=== PATIENT | female | born 1950 | race Two or more races ===

== ENCOUNTER 2016-11-18 23:01 | Inpatient (IN) | payer OTHER, MEDICAID ==
[~2016-11-18] VITALS: Ht 157.5 cm; Wt 75.8 kg
[~2016-11-18 23:01] MED LIST: ALBU18 IN; BUDE80AE3 INH; DEXTLIQ70 PO; GABA300C8 PO; GLIM1TAB2 PO; LEV500T PO; LOSA100T26 PO; MULTTAB OR
[2016-11-18 23:30] LABS: DEFINITIVE VIEW TRANSMISSION; Hematocrit 41.6 % (36.0-46.0); Hemoglobin 13.2 g/dL (12.2-16.2); Mean Corpuscular Hemoglobin 25.4 pg (28.0-32.0); Mean Corpuscular Hgb Conc. 31.8 g/dL (32.0-36.0); Mean Corpuscular Volume 79.8 fL (80.0-100.0); Platelet Count (auto) 335 10^3/uL (140-450); Red Cell Distribution Width 13.5 % (11.6-16.0); SUSPECT VIEW TRANSMISSION; White Blood Cell 20.5 10^3/uL (4.4-10.8)
[2016-11-18 23:37] LABS: Metamyelocytes % 0; Myelocytes % 0; Promyelocytes % 0; Reactive Lymphocytes 0
[2016-11-18 23:42] LABS: INR 0.99 (0.9-1.15); Partial Thromboplastin Time 28.3 sec (22.64-33.71); Prothrombin Time 10.7 sec (9.37-12.3)
[2016-11-18] MEDS ORDERED: ALBUTEROL SULF 2.5 MG/0.5ML(0.5%) NEB SOLN HHN STA (23:49)
[2016-11-18 23:56] LABS: Platelet Estimate Adequate; RBC Morphology Normal
[2016-11-18 23:58] LABS: Albumin 3.3 g/dL (3.4-5.0); Anion Gap 11 (5-15); Aspartate Aminotransferase 23 U/L (15-37); BUN/Creatinine Ratio 20.7; Blood Urea Nitrogen 24 mg/dL (7-18); Calcium 8.6 mg/dL (8.5-10.1); Carbon Dioxide 25 mmol/L (21-32); Chloride 102 mmol/L (98-107); GFR African American 60 mL/min; GFR Non-African American 49 mL/min; Glucose 113 mg/dL (74-106); Magnesium 1.6 mg/dL (1.6-2.6); Potassium 3.5 mmol/L (3.5-5.1); Sodium 138 mmol/L (136-145)
[2016-11-19] VITALS (7 sets, daily range): BP systolic 97–138; BP diastolic 46–64
[2016-11-19] MEDS ORDERED: SODIUM CHLORIDE 0.9% 500 ML IV ONE
[2016-11-19] MEDS ORDERED: IPRATROPIUM BROM 0.5 MG/2.5ML INH SOL NEB ONE
[2016-11-19] MEDS ORDERED: LEVOFLOXACIN 500MG 100 ML IV ONE
[2016-11-19] MEDS ORDERED: methylPREDNISolone SOD SUCC 125 MG/2 ML VL IV ONE
[2016-11-19 00:03] LABS: Alkaline Phosphatase 107 U/L (45-117); Bilirubin, Total 0.7 mg/dL (0.2-1.0); Total Protein 7.8 g/dL (6.4-8.2)
[2016-11-19 01:15] LABS: B-Type Natriuretic Peptide 25.7 pg/mL (0-100); Temperature: 23.5 C (20.0-25.0)
[2016-11-19] MEDS ORDERED: DEXTROSE (50%) 50ML SYRG IV PRN (02:00)
[2016-11-19] MEDS ORDERED: ONDANSETRON HCL 4 MG/2 ML VIAL IV PRN (02:00)
[2016-11-19] MEDS ORDERED: ACETAMINOPHEN 325 MG TAB PO PRN (02:00)
[2016-11-19] MEDS: ALBUTEROL SULF 2.5 MG/0.5ML(0.5%) NEB SOLN NEB PRN ×3 (05:55→18:58)
[2016-11-19] MEDS: IPRATROPIUM BROM 0.5 MG/2.5ML INH SOL NEB PRN ×3 (05:56→18:58)
[2016-11-19] MEDS: ACCU-CHEK COMFORT CURVE STRIP VI SCH ×3 (06:07→17:42)
[2016-11-19] MEDS: GABAPENTIN 300 MG CAP PO SCH ×3 (06:07→22:43)
[2016-11-19] MEDS: InsuLIN REG 1unit/0.01ml Soln (100units/ml) SC SCH ×3 (06:28→17:48)
[2016-11-19] MEDS ORDERED: BUDESONIDE (INHALATION) 0.5 MG/2 ML NEB NEB SCH (10:00)
[2016-11-19] MEDS ORDERED: methylPREDNISolone SOD SUCC 125 MG/2 ML VL IV SCH (10:00)
[2016-11-19] MEDS: LOSARTAN POTASSIUM 25 MG TAB PO SCH (10:29)
[2016-11-19] MEDS: HCTZ 25 MG TAB PO SCH (10:30)
[2016-11-19] MEDS: FAMOTIDINE 20 MG TAB PO SCH ×2 (10:30→22:43)
[2016-11-19] MEDS: ENOXAPARIN SOD 40 MG/0.4 ML SYRINGE SC SCH (10:30)
[2016-11-19] MEDS: BUDESONIDE (INHALATION) 0.5 MG/2 ML NEB NEB SCH (18:58)
[2016-11-19] MEDS: methylPREDNISolone SOD SUCC 125 MG/2 ML VL IV SCH (22:43)
[2016-11-20] MEDS ORDERED: LEVOFLOXACIN 500MG 100 ML IV SCH
[2016-11-20] MEDS: LEVOFLOXACIN 250MG 50 ML IV SCH ×2 (00:21→23:56)
[2016-11-20] MEDS: IPRATROPIUM BROM 0.5 MG/2.5ML INH SOL NEB PRN ×3 (00:26→12:06)
[2016-11-20] MEDS: ALBUTEROL SULF 2.5 MG/0.5ML(0.5%) NEB SOLN NEB PRN ×3 (00:26→12:06)
[2016-11-20] MEDS: InsuLIN REG 1unit/0.01ml Soln (100units/ml) SC SCH ×4 (01:04→18:00)
[2016-11-20 05:20] VITALS: BP 133/74
[2016-11-20] MEDS: ACCU-CHEK COMFORT CURVE STRIP VI SCH ×5 (06:00→23:55)
[2016-11-20 06:27] LABS: Basophils # (auto) 0 uL; DEFINITIVE VIEW TRANSMISSION; Eosinophils # (auto) 0 uL; Hematocrit 37.6 % (36.0-46.0); Hemoglobin 12.1 g/dL (12.2-16.2); Lymphocytes # (auto) 1.3 uL; Lymphocytes % (auto) 7.2 % (10.0-50.0); Mean Corpuscular Hemoglobin 26.3 pg (28.0-32.0); Mean Corpuscular Hgb Conc. 32.2 g/dL (32.0-36.0); Mean Corpuscular Volume 81.5 fL (80.0-100.0); Mean Platelet Volume 7.6 fL (7.4-10.4); Monocytes # (auto) 0.4 uL; Monocytes % (auto) 2.1 % (0.0-12.0); Neutrophils # (auto) 16.5 uL; Neutrophils % (auto) 90.7 % (37.0-80.0); Platelet Count (auto) 358 10^3/uL (140-450); Red Cell Distribution Width 14.8 % (11.6-16.0); White Blood Cell 18.2 10^3/uL (4.4-10.8)
[2016-11-20] MEDS: GABAPENTIN 300 MG CAP PO SCH ×3 (06:31→21:20)
[2016-11-20 06:37] LABS: Calcium 8.8 mg/dL (8.5-10.1); Potassium 4.3 mmol/L (3.5-5.1)
[2016-11-20 06:40] LABS: Albumin 2.8 g/dL (3.4-5.0); BUN/Creatinine Ratio 25.6
[2016-11-20 06:43] LABS: Bilirubin, Total 0.3 mg/dL (0.2-1.0); Total Protein 7.2 g/dL (6.4-8.2)
[2016-11-20] MEDS: BUDESONIDE (INHALATION) 0.5 MG/2 ML NEB NEB SCH ×2 (07:23→20:33)
[2016-11-20 09:00] VITALS: BP 130/59
[2016-11-20] MEDS: LOSARTAN POTASSIUM 25 MG TAB PO SCH (10:09)
[2016-11-20] MEDS: ENOXAPARIN SOD 40 MG/0.4 ML SYRINGE SC SCH (10:09)
[2016-11-20] MEDS: methylPREDNISolone SOD SUCC 125 MG/2 ML VL IV SCH (10:09)
[2016-11-20] MEDS: FAMOTIDINE 20 MG TAB PO SCH ×2 (10:09→21:20)
[2016-11-20] MEDS: HCTZ 25 MG TAB PO SCH (10:10)
[2016-11-20 13:00] VITALS: BP 152/82
[2016-11-20] MEDS ORDERED: GLIMEPIRIDE 2 MG TAB PO ONE (13:00)
[2016-11-20 17:17] VITALS: BP 141/78
[2016-11-20] MEDS: ALBUTEROL SULF 2.5 MG/0.5ML(0.5%) NEB SOLN NEB SCH (20:32)
[2016-11-20] MEDS: IPRATROPIUM BROM 0.5 MG/2.5ML INH SOL NEB SCH (20:32)
[2016-11-20 22:00] VITALS: BP 123/63
[2016-11-21] VITALS (7 sets, daily range): BP systolic 117–128; BP diastolic 58–74
[2016-11-21] MEDS: InsuLIN REG 1unit/0.01ml Soln (100units/ml) SC SCH ×5 (00:17→23:35)
[2016-11-21] MEDS: ALBUTEROL SULF 2.5 MG/0.5ML(0.5%) NEB SOLN NEB PRN (03:57)
[2016-11-21] MEDS: IPRATROPIUM BROM 0.5 MG/2.5ML INH SOL NEB PRN (03:58)
[2016-11-21] MEDS: GABAPENTIN 300 MG CAP PO SCH ×3 (06:05→21:31)
[2016-11-21] MEDS: GLIMEPIRIDE 2 MG TAB PO SCH (06:08)
[2016-11-21] MEDS: ACCU-CHEK COMFORT CURVE STRIP VI SCH ×4 (06:09→23:35)
[2016-11-21 06:14] LABS: Basophils # (auto) 0 uL; Basophils % (auto) 0.2 % (0.0-2.0); DEFINITIVE VIEW TRANSMISSION; Eosinophils # (auto) 0 uL; Hematocrit 36.2 % (36.0-46.0); Hemoglobin 11.8 g/dL (12.2-16.2); Lymphocytes # (auto) 2.2 uL; Lymphocytes % (auto) 11.5 % (10.0-50.0); Mean Corpuscular Hemoglobin 26.2 pg (28.0-32.0); Mean Corpuscular Hgb Conc. 32.6 g/dL (32.0-36.0); Mean Corpuscular Volume 80.4 fL (80.0-100.0); Mean Platelet Volume 7.3 fL (7.4-10.4); Monocytes # (auto) 1.7 uL; Monocytes % (auto) 8.5 % (0.0-12.0); Neutrophils # (auto) 15.5 uL; Neutrophils % (auto) 79.8 % (37.0-80.0); Platelet Count (auto) 390 10^3/uL (140-450); Red Cell Distribution Width 14.4 % (11.6-16.0); White Blood Cell 19.4 10^3/uL (4.4-10.8)
[2016-11-21 06:46] LABS: Calcium 8.8 mg/dL (8.5-10.1); Potassium 3.6 mmol/L (3.5-5.1)
[2016-11-21 06:49] LABS: BUN/Creatinine Ratio 30.8
[2016-11-21] MEDS: IPRATROPIUM BROM 0.5 MG/2.5ML INH SOL NEB SCH ×4 (07:11→19:52)
[2016-11-21] MEDS: ALBUTEROL SULF 2.5 MG/0.5ML(0.5%) NEB SOLN NEB SCH ×4 (07:12→19:53)
[2016-11-21] MEDS: FAMOTIDINE 20 MG TAB PO SCH ×2 (10:29→21:32)
[2016-11-21] MEDS: ENOXAPARIN SOD 40 MG/0.4 ML SYRINGE SC SCH (10:29)
[2016-11-21] MEDS: predniSONE 20 MG TAB PO SCH (10:30)
[2016-11-21] MEDS: LOSARTAN POTASSIUM 25 MG TAB PO SCH (10:31)
[2016-11-21] MEDS: BUDESONIDE (INHALATION) 0.5 MG/2 ML NEB NEB SCH ×2 (10:49→22:00)
[2016-11-21] MEDS ORDERED: PIPERACILLIN-TAZOB 3.375GM 0 ML IV ONE (20:19)
[2016-11-21] MEDS: LEVOFLOXACIN 250MG 50 ML IV SCH (23:34)
[2016-11-22] VITALS (7 sets, daily range): BP systolic 116–152; BP diastolic 65–71
[2016-11-22] MEDS: InsuLIN REG 1unit/0.01ml Soln (100units/ml) SC SCH ×4 (05:41→23:43)
[2016-11-22] MEDS: ACCU-CHEK COMFORT CURVE STRIP VI SCH ×4 (05:41→23:43)
[2016-11-22] MEDS: GABAPENTIN 300 MG CAP PO SCH ×3 (06:17→21:37)
[2016-11-22] MEDS: GLIMEPIRIDE 2 MG TAB PO SCH (06:17)
[2016-11-22 06:32] LABS: Basophils # (auto) 0 uL; Basophils % (auto) 0.2 % (0.0-2.0); DEFINITIVE VIEW TRANSMISSION; Eosinophils # (auto) 0 uL; Eosinophils % (auto) 0.2 % (0.0-7.0); Hematocrit 37.8 % (36.0-46.0); Hemoglobin 12.3 g/dL (12.2-16.2); Lymphocytes # (auto) 2.8 uL; Mean Corpuscular Hemoglobin 25.9 pg (28.0-32.0); Mean Corpuscular Hgb Conc. 32.5 g/dL (32.0-36.0); Mean Corpuscular Volume 79.8 fL (80.0-100.0); Mean Platelet Volume 6.7 fL (7.4-10.4); Monocytes # (auto) 1.6 uL; Monocytes % (auto) 10.4 % (0.0-12.0); Neutrophils # (auto) 11.2 uL; Neutrophils % (auto) 71.2 % (37.0-80.0); Platelet Count (auto) 445 10^3/uL (140-450); Red Cell Distribution Width 14.6 % (11.6-16.0); White Blood Cell 15.8 10^3/uL (4.4-10.8)
[2016-11-22 06:46] LABS: BUN/Creatinine Ratio 26.2; Calcium 8.8 mg/dL (8.5-10.1); Magnesium 1.8 mg/dL (1.6-2.6); Potassium 3.8 mmol/L (3.5-5.1)
[2016-11-22] MEDS: ALBUTEROL SULF 2.5 MG/0.5ML(0.5%) NEB SOLN NEB SCH ×4 (07:20→19:39)
[2016-11-22] MEDS: IPRATROPIUM BROM 0.5 MG/2.5ML INH SOL NEB SCH ×4 (07:21→19:39)
[2016-11-22] MEDS: BUDESONIDE (INHALATION) 0.5 MG/2 ML NEB NEB SCH ×2 (07:23→19:39)
[2016-11-22] MEDS: ENOXAPARIN SOD 40 MG/0.4 ML SYRINGE SC SCH (11:25)
[2016-11-22] MEDS: LOSARTAN POTASSIUM 25 MG TAB PO SCH (11:25)
[2016-11-22] MEDS: FAMOTIDINE 20 MG TAB PO SCH ×2 (11:26→21:38)
[2016-11-22] MEDS: predniSONE 20 MG TAB PO SCH (11:26)
[2016-11-23 04:44] VITALS: BP 136/77
[2016-11-23] MEDS: GABAPENTIN 300 MG CAP PO SCH (05:24)
[2016-11-23] MEDS: InsuLIN REG 1unit/0.01ml Soln (100units/ml) SC SCH (05:27)
[2016-11-23] MEDS: ACCU-CHEK COMFORT CURVE STRIP VI SCH (05:28)
[2016-11-23] MEDS: GLIMEPIRIDE 2 MG TAB PO SCH (05:59)
[2016-11-23] MEDS: IPRATROPIUM BROM 0.5 MG/2.5ML INH SOL NEB SCH ×3 (06:14→14:19)
[2016-11-23] MEDS: ALBUTEROL SULF 2.5 MG/0.5ML(0.5%) NEB SOLN NEB SCH ×3 (06:14→14:19)
[2016-11-23 08:00] VITALS: BP 123/70
[2016-11-23 08:48] VITALS: BP 123/70
[2016-11-23] MEDS: LOSARTAN POTASSIUM 25 MG TAB PO SCH (10:00)
[2016-11-23] MEDS: predniSONE 20 MG TAB PO SCH (10:00)
[2016-11-23] MEDS: ENOXAPARIN SOD 40 MG/0.4 ML SYRINGE SC SCH (10:00)
[2016-11-23] MEDS ORDERED: LEVOFLOXACIN 500 MG TAB PO SCH (10:00)
[2016-11-23] MEDS: FAMOTIDINE 20 MG TAB PO SCH (10:00)
[2016-11-23] MEDS: BUDESONIDE (INHALATION) 0.5 MG/2 ML NEB NEB SCH (10:35)
[2016-11-23 11:07] VITALS: BP 123/70
[2016-11-23 11:45] VITALS: BP 123/70
[2016-11-23 12:47] VITALS: BP 118/79
== END 2016-11-23 15:20 | disposition home or self-care (01) | DRG 189 ==
LOC: ER 23:04 → OVERFLOW 23:05 → WEST WING 11-19 02:27
PROVIDERS: ADMIT Nurse Practitioner; ATTEND Internal Medicine
DX: J96.21 Acute and chronic respiratory failure with hypoxia (principal); J44.1 Chronic obstructive pulmonary disease with (acute) exacerbation; N17.9 Acute kidney failure, unspecified; R65.10 Systemic inflammatory response syndrome (SIRS) of non-infectious origin without acute organ dysfunction; D72.829 Elevated white blood cell count, unspecified; E11.22 Type 2 diabetes mellitus with diabetic chronic kidney disease; I12.9 Hypertensive chronic kidney disease with stage 1 through stage 4 chronic kidney disease, or unspecified chronic kidney disease; M10.9 Gout, unspecified; N18.3 Chronic kidney disease, stage 3 (moderate); E66.01 Morbid (severe) obesity due to excess calories; T38.0X5A Adverse effect of glucocorticoids and synthetic analogues, initial encounter; F41.9 Anxiety disorder, unspecified; Z87.442 Personal history of urinary calculi; Z87.891 Personal history of nicotine dependence; Z68.26 Body mass index [BMI] 26.0-26.9, adult; Z90.49 Acquired absence of other specified parts of digestive tract; Z90.710 Acquired absence of both cervix and uterus; Z88.6 Allergy status to analgesic agent; Z88.1 Allergy status to other antibiotic agents; Z88.0 Allergy status to penicillin; Z88.8 Allergy status to other drugs, medicaments and biological substances; Z79.899 Other long term (current) drug therapy; Z99.81 Dependence on supplemental oxygen
CPT/HCPCS: 36415; 71020; 80048; 80053; 82962; 83605; 83735; 83880; 84484; 85007; 85025; 85027; 85610; 85730; 87040; 93005; 94640; 94644; 94761; 96365; 96375; J1815; J1956; J2405; J2543

== ENCOUNTER → 2016-12-31 | Outpatient (CLI) | payer OTHER, MEDICAID ==
[~2016-12-31] MED LIST changes: +ALBUTEROL SULF 2.5 MG/0.5ML(0.5%) NEB SOLN ONE; +GABA-497 PO; -GABA300C8 PO; -LEV500T PO; +SODIUM CHLORIDE 0.9 % NEB SOLN 3ML NEB ONE
[2016-12-31 09:46] LABS: Albumin 3.8 g/dL (3.4-5.0); BUN/Creatinine Ratio 27.1; Bilirubin, Total 0.6 mg/dL (0.2-1.0); Calcium 8.8 mg/dL (8.5-10.1); Potassium 3.9 mmol/L (3.5-5.1); Total Protein 7.5 g/dL (6.4-8.2)
[2016-12-31 09:54] LABS: Urine Bilirubin Negative (Negative); Urine Blood Negative /uL (Negative); Urine Color Yellow (Yellow); Urine Glucose Normal (Normal); Urine Ketone Negative (Negative); Urine Mucus FEW (None Seen); Urine Nitrite Negative (Negative); Urine RBC 1 /hpf (0 - 4); Urine Squamous Epithelial Cell FEW /hpf (<5); Urine Urobilinogen Normal (Negative); Urine pH 5.5 (5.0-8.0)
== END | disposition home or self-care (01) ==
LOC: LAB 08:03 → RT 08:35
PROVIDERS: ATTEND Internal Medicine
DX: I10 Essential (primary) hypertension (principal)
CPT/HCPCS: 36415; 80053; 80061; 81001; 82043; 82306; 83036; 85652; 86141; 86200; 86431; 94060; 94640

== ENCOUNTER → 2017-01-19 | Outpatient (CLI) | payer OTHER, MEDICAID ==
[~2017-01-19] MED LIST changes: -ALBUTEROL SULF 2.5 MG/0.5ML(0.5%) NEB SOLN ONE; -SODIUM CHLORIDE 0.9 % NEB SOLN 3ML NEB ONE
== END | disposition home or self-care (01) ==
LOC: LAB 08:06
PROVIDERS: ATTEND Internal Medicine
DX: Z00.00 Encounter for general adult medical examination without abnormal findings (principal); I10 Essential (primary) hypertension; E78.5 Hyperlipidemia, unspecified; E11.9 Type 2 diabetes mellitus without complications; E55.9 Vitamin D deficiency, unspecified
CPT/HCPCS: 82270